=== PATIENT | female | born 1990 ===

== ENCOUNTER 2023-02-12 13:49 | Emergency (ER) | payer OTHER ==
[~2023-02-12] VITALS: Ht 154 cm; Wt 92.0 kg
[~2023-02-12 13:49] MED LIST: ACHD5005 PO; FRS325T PO; METR500T PO; NAPR-243 PO; PRD50T PO; PREN1TAB39 PO
--- NOTE | 2023-02-12 14:06 | ED Dyspnea ---
General Stated Complaint: HIGH ESTROGEN LEVEL | HAS SOB EPISODES Source of Information: Patient Exam Limitations: No Limitations History of Present Illness Date Seen by Provider: Feb 12, 2023 Time Seen by Provider: 13:53 Initial Comments 32-year-old female presents to the emergency department today for episodes of shortness of breath. She has been following with her outpatient provider for the last couple of months for these episodes. Symptoms are mostly with exertion. No fevers chills or cough. She states she had blood work showing elevated estrogen levels and was prompted to come to the emergency department today for "testing." Notably she does take estradiol as she has had a total abdominal hysterectomy. All other systems reviewed and negative except documented per HPI. Voice recognition software was used to help create this chart Allergies and Home Medications Allergies Coded Allergies: Rut Known Allergies (Verified Allergy, Unknown, 02/05/06) Patient Home Medication List Home Medication List Reviewed: Yes Hydrocodone Bit/Acetaminophen (Lortab 5 Mg Tablet) 1 Each Tablet, 1-2 EACH PO Q6H PRN Prescribed by: POOL ARANGO on 12/16/10 0852 Metronidazole (Flagyl 500 Mg) 500 Mg Tab, 1 EACH PO BID Prescribed by: POOL ARANGO on 12/16/10 0852 Naproxen (Naprosyn) 500 Mg Tablet, 1 EACH PO BID PRN Prescribed by: POOL ARANGO on 12/16/10 0852 Prednisone (Prednisone) 50 Mg Tab, 50 MG PO DAILY Prescribed by: POOL ARANGO on 08/15/12 0631 Review of Systems Review of Systems Constitutional: see HPI Past Gcjcdko-Vecjta-Znearn Hx Patient Social History Tobacco Use?: No Use of E-Cig and/or Vaping dev: No Substance use?: No Alcohol Use?: No Past Medical History Reproductive Disorders: Yes Family Medical History Reviewed Nursing Family Hx No Pertinent Family Hx Physical Exam Vital Signs Vital Signs - First Documented 02/12/23 13:53 Temp 35.9 Pulse 68 Resp 16 B/P (MAP) 145/105 (118) Pulse Ox 97 O2 Delivery Room Air Capillary Refill : Height, Weight, BMI Height: 5'1" Weight: 190lbs. oz. 86.356357re; BMI Method:Stated General Appearance: No Apparent Distress, WD/WN HEENT: Normal ENT Inspection, Pharynx Normal Neck: Full Range of Motion, Normal Inspection Respiratory: Chest Non Tender, Lungs Clear, Normal Breath Sounds, No Accessory Muscle Use, No Respiratory Distress Cardiovascular: Regular Rate, Rhythm, No Murmur, Normal Peripheral Pulses Gastrointestinal: Normal Bowel Sounds, Non Tender, Soft Extremity: Normal Capillary Refill, Normal Inspection, Normal Range of Motion, Non Tender, No Calf Tenderness Neurologic/Psychiatric: Alert, Oriented x3, No Motor/Sensory Deficits Skin: Normal Color, Warm/Dry Progress/Results/Core Measures Results/Orders Lab Results Laboratory Tests Test 02/12/23 14:05 Range/Units Sodium Level 141 135-145 MMOL/L Potassium Level 3.7 3.6-5.0 MMOL/L Chloride Level 106 98-107 MMOL/L Carbon Dioxide Level 25 21-32 MMOL/L Anion Gap 10 5-14 MMOL/L Blood Urea Nitrogen 12 7-18 MG/DL Creatinine 0.62 0.60-1.30 MG/DL Estimat Glomerular Filtration Rate 120 BUN/Creatinine Ratio 19 Glucose Level 85 70-105 MG/DL Calcium Level 9.4 8.5-10.1 MG/DL My Orders Orders - KINZA ACOSTA DO Basic Metabolic Panel (02/12/23 14:03) Ct Angio Chest W (02/12/23 14:03) Iohexol Injection (Omnipaque 350 Mg/Ml 1 (02/12/23 14:15) Received Contrast (Hold Metformin- Contr (02/12/23 14:15) Ns (Ivpb) (Sodium Chloride 0.9% Ivpb Bag (02/12/23 14:15) Medications Given in ED Current Medications Medications Dose Ordered Sig/Mariela Route Start Time Stop Time Status Last Admin Dose Admin Iohexol 100 ml ONCE ONCE IV 02/12/23 14:15 02/12/23 14:16 DC 02/12/23 14:46 78 ML Sodium Chloride 100 ml ONCE ONCE IV 02/12/23 14:15 02/12/23 14:16 DC 02/12/23 14:46 80 ML Vital Signs/I&O 02/12/23 13:53 Temp 35.9 Pulse 68 Resp 16 B/P (MAP) 145/105 (118) Pulse Ox 97 O2 Delivery Room Air Departure Communication (Admissions) Patient is hemodynamically stable. Not Tachycardic with normal oxygen saturation. She does have an elevated estrogen level checked by her outpatient physician. She is taking estradiol. CT scan is negative for any pulmonary embolism, pneumonia, pneumothorax. No evidence for cardiac cause. She will be discharged in stable condition recommended continued follow-up with her primary care doctor for further evaluation. Incidental findings on CT scan discussed with patient. Thyroid nodule and hepatic steatosis. Impression Primary Impression: Dyspnea Qualified Codes: R06.00 - Dyspnea, unspecified Additional Impression: Thyroid nodule Disposition: HOME, SELF-CARE Condition: Stable Departure-Patient Inst. Referrals: AILYN SUÁREZ APRN (PCP/Family) Primary Care Physician Patient Instructions: Shortness of Breath, Adult ED Add. Discharge Instructions: Your CT scan shows no evidence of blood clots in your lungs, pneumonia or collapsed lung. There is no obvious evidence of clots causing your symptoms to day. Does not appear to be from an emergent condition at this time. You were incidentally found to have a thyroid nodule. Follow-up with primary doctor to discuss this. There is slight fatty liver as well which may need followed up in the near future. I recommend follow-up with your primary doctor for continued treatment recommendations. Return to the emergency department for any severe concerns. KINZA ACOSTA DO Feb 12, 2023 14:06
[2023-02-12] MEDS ORDERED: IOHEXOL 350 MG/ML 100 ML (OMNIPAQUE 350) VIAL IV ONE (14:15)
[2023-02-12] MEDS ORDERED: HOLD METFORMIN - RECEIVED CONTRAST 20 ML VIAL IV SCH (14:15)
[2023-02-12] MEDS ORDERED: NS 100 ML (IVPB) BAG IV ONE (14:15)
[2023-02-12 14:27] LABS: POTASSIUM 3.7 MMOL/L (3.6-5.0)
[2023-02-12 14:29] LABS: CALCIUM 9.4 MG/DL (8.5-10.1)
[2023-02-12 14:33] LABS: CREATININE SERUM 0.62 MG/DL (0.60-1.30)
--- NOTE | 2023-02-12 15:04 | Diagnostic Imaging Report ---
PROCEDURE: CT angiography of the chest with contrast. TECHNIQUE: Multiple contiguous axial images were obtained through the chest after uneventful bolus administration of intravenous contrast. 3D reconstructed CTA MIP acquisitions were also performed. Auto Exposure Controls were utilized during the CT exam to meet ALARA standards for radiation dose reduction. INDICATION: Dyspnea and elevated estrogen level. FINDINGS: There is good opacification of the pulmonary arteries without intraluminal filling defect. Thoracic aorta is of normal caliber. Lungs are clear. There is no evidence of consolidation or mass. No significant pleural or pericardial fluid is identified. Upper abdominal sections reveal hepatic steatosis. There is an approximately 1.5 cm hyperdense nodule in the inferior left thyroid lobe. IMPRESSION: No CTA evidence of pulmonary embolism. Incidental findings include 1.5 cm inferior pole left lobe thyroid nodule which could be assessed with ultrasonography and diffuse hepatic steatosis. There is also a small hiatal hernia. Dictated by: Dictated on workstation # [id number]
[2023-02-12 15:21] VITALS: BP 99/61
== END 2023-02-12 15:18 | disposition home or self-care (01) ==
LOC: EDUNIT# 13:49 → ER 13:53
DX: R06.00 Dyspnea, unspecified (principal); E04.1 Nontoxic single thyroid nodule; Z79.810 Long term (current) use of selective estrogen receptor modulators (SERMs); Z90.710 Acquired absence of both cervix and uterus; Z28.310 Unvaccinated for COVID-19
CPT/HCPCS: 36415; 71275; 80048